=== PATIENT | female | born 1990 | race Caucasian/White ===

== ENCOUNTER → 2019-08-04 15:42 | Outpatient (CLI) | payer BC, SELFPAY ==
--- NOTE | 2019-08-04 15:47 | US_ITS ---
STUDY: FIRST TRIMESTER OBSTETRICAL ULTRASOUND REASON FOR EXAM: Female, 29 years old dating LMP: June 01, 2019 TECHNIQUE: Endovaginal TECHNICAL QUALITY: Adequate. PRIOR ULTRASOUND: None. FINDINGS: There is visualization of a single gestational sac in a normal intrauterine position. The mean sac diameter (MSD) measures 3.1 cm, indicating an estimated gestational age (EGA) of 8 weeks, 3 days. The gestational sac shape is within normal limits. There is a visualized yolk sac. The yolk sac measures 3.7 mm. The placenta is non-visualized. There is visualization of a live embryo. The crown-rump length (CRL) measures 1.25 cm, indicating an estimated gestational age (EGA) of 7 weeks, 4 days. There is demonstrated cardiac activity with a heart rate of 146 bpm. The estimated gestation age (EGA) by LMP is 9 weeks, 1 day. The estimated date of delivery (CHEVY) by LMP is March 07, 2020. The estimated gestation age (EGA) by US is h weeks, 0 days. The estimated date of delivery (CHEVY) by US is March 15, 2020. The uterus measures 9.3 x 7.2 x 6.3 cm. It is slightly retroverted. There is no demonstrated uterine fibroid. The cervix is closed. Small nabothian cyst. The right ovary measures 3.4 x 2.1 x 1.5 cm. There is no right ovarian cyst. There is no visualized right adnexal mass or complex lesion. The left ovary measures 2.9 x 2.2 x 1.9 cm. There is no left ovarian cyst. There is no visualized left adnexal mass or complex lesion. There is no fluid in the cul de sac. US/Init OB < 14Wks US IMPRESSION: Live intrauterine at 8 weeks of gestational age. Electronically Signed: Merritt Hanks DO at 20:18 EDT Tel [phone], Service support ,
== END ==
PROVIDERS: Family Provider Internal Medicine; PCP Internal Medicine; Referring Provider Obstetrics & Gynecology; Visit Provider Obstetrics & Gynecology
DX: O36.80X0 Pregnancy with inconclusive fetal viability, not applicable or unspecified (principal); Z3A.08 8 weeks gestation of pregnancy
CPT/HCPCS: 76801

== ENCOUNTER → 2019-08-22 14:47 | Outpatient (CLI) | payer BC, SELFPAY ==
[2019-08-22 13:27] VITALS: BMI 24.0
[2019-08-22 15:13] LABS: Absolute Lymphocyte Count 2.81 X10^3/uL (0.83-4.51); Absolute Neutrophil Count 8.6 X10^3/uL (2.0-7.7); Basophil# 0.04 X10^3/uL; Basophil% 0.3 % (0-1); Eosinophil# 0.04 X10^3/uL; Eosinophils% 0.3 % (0-5); Hematocrit 40.6 % (37-47); Hemoglobin 14.3 g/dL (12.0-15.0); Lymphocyte # 2.81 X10^3/ul (4.0); Lymphocyte % 22.5 % (19-41); Mean Corp Hgb Conc 35.2 g/dL (32-36); Mean Corpuscular Hgb 32.5 pg (27.0-32.0); Mean Corpuscular Volume 92.3 fL (81-99); Mean Platelet Vol. 9.8 fl (6.2-12.0); Monocyte# 0.94 X10^3/uL; Monocyte% 7.5 % (0-10); NRBC Flagged by Analyzer 0 % (0-5); Neutrophil # 8.63 X10^3/uL (2.7-7.7); Platelet Count 300 K/mm3 (150-450); RBC Distribution Width CV 12.4 % (11.6-14.6); RBC Distribution Width SD 42.3 fl (35.1-43.9); White Blood Count 12.5 K/mm3 (4.4-11.0)
[2019-08-23 12:26] LABS: HIV - WCH Non-Reactive (Nonreactive); Hepatitis B Surface Antigen Non-Reactive (Nonreactive); Rubella IgG 61.2 IU/mL
[2019-08-25 01:54] LABS: Rapid Plasmin Reagin (RPR) NONREACTIVE (NONREACTIVE)
== END ==
PROVIDERS: Family Provider Internal Medicine; PCP Internal Medicine; Referring Provider Nurse Practitioner Women's Health; Visit Provider Nurse Practitioner Women's Health
DX: Z34.81 Encounter for supervision of other normal pregnancy, first trimester (principal)
CPT/HCPCS: 36415; 85025; 86592; 86703; 86762; 86850; 86900; 86901; 87340

== ENCOUNTER → 2019-08-22 16:54 | Outpatient (CLI) | payer BC, SELFPAY ==
[2019-08-22 13:27] VITALS: BMI 24.0
[2019-08-22 20:55] LABS: Chlamydia Trachomatis by PCR Negative (Negative); Neisserai gonorrhoeae by PCR Negative (Negative); Probe Check PASS; Sample Adequacy Control PASS; Specimen Processing Control PASS
[2019-08-25 18:47] LABS: HPV Reflexed? NOT INDICATED
== END ==
PROVIDERS: Family Provider Internal Medicine; PCP Internal Medicine; Referring Provider Nurse Practitioner Women's Health; Visit Provider Nurse Practitioner Women's Health
DX: Z12.4 Encounter for screening for malignant neoplasm of cervix (principal); Z34.00 Encounter for supervision of normal first pregnancy, unspecified trimester
CPT/HCPCS: 87086; 87491; 87591; 88175; G0145

== ENCOUNTER → 2019-09-15 16:37 | Outpatient (CLI) | payer BC, SELFPAY ==
[2019-09-15 14:13] VITALS: BMI 24.0
== END ==
PROVIDERS: Family Provider Internal Medicine; PCP Internal Medicine; Referring Provider Obstetrics & Gynecology; Visit Provider Obstetrics & Gynecology
DX: N89.8 Other specified noninflammatory disorders of vagina (principal)
CPT/HCPCS: 87070; 87205

== ENCOUNTER → 2019-09-18 12:30 | Outpatient (CLI) | payer BC, SELFPAY ==
[2019-09-18 11:56] VITALS: BMI 24.0
--- NOTE | 2019-09-18 12:33 | US_ITS ---
STUDY: SECOND AND THIRD TRIMESTER OBSTETRICAL ULTRASOUND REASON FOR EXAM: Female, 29 years old bleeding with early . LMP: June 08, 2019. TECHNIQUE: Transabdominal and Transvaginal TECHNICAL QUALITY: Adequate. PRIOR ULTRASOUND: Comparison is made with prior study dated August 04, 2019. FINDINGS: There is a single intrauterine fetus. The fetus is in a variable presentation. There is demonstrated cardiac activity with a heart rate of 166 bpm. There is a normal amniotic fluid volume. The largest amniotic fluid pocket measures 3.9 cm x 3.2 cm. The amniotic fluid index (JOSE) is within normal limits. The placenta is anterior and low lying but not previa in location. The tip of the placenta is at 1.3 cm proximal to the cervical os. There are Grade 0 placental changes. The cervix measures 3.1 cm in length. The adnexal regions are not visualized. BIOMETRY: BPD: 2.58 cm: 14 weeks, 3 days HC: 9.7 cm: 14 weeks, 3 days AC: 7.35 cm: 13 weeks, 6 days FL: 1.2 cm: 13 weeks, 3 days CI: 81% FL/BPD: 46% FL/HC: FL/AC: 16% HC/AC: 1.31 age by current US: 14 weeks, 0 days. CHEVY by current US: March 18, 2020. Estimated weight: 83 grams, +/- 12 grams age by prior US: 14 weeks, 3 days. CHEVY by prior US: March 15, 2020. Age by LMP: 14 weeks, 3 days. CHEVY by LMP: March 15, 2020. US/OB Limited With Biometrics IMPRESSION: Single live intrauterine gestation with a mean gestational age of 14 weeks and 3 days. The measurements obtained today following the normal expected range. Low-lying anterior placenta previa. The tip of the placenta is a 1.3 cm proximal to the cervical os. Electronically Signed: Vern Freire, at 14:58 EST , Service support ,
== END ==
PROVIDERS: Family Provider Internal Medicine; PCP Internal Medicine; Referring Provider Nurse Practitioner Women's Health; Visit Provider Nurse Practitioner Women's Health
DX: O44.02 Complete placenta previa NOS or without hemorrhage, second trimester (principal); Z3A.14 14 weeks gestation of pregnancy
CPT/HCPCS: 76816; 76830

== ENCOUNTER → 2019-10-11 13:40 | Outpatient (CLI) | payer BC, SELFPAY ==
[2019-10-11 13:17] VITALS: BMI 24.0
== END ==
PROVIDERS: Family Provider Internal Medicine; PCP Internal Medicine; Referring Provider Obstetrics & Gynecology; Visit Provider Obstetrics & Gynecology
DX: Z36.9 Encounter for antenatal screening, unspecified (principal)
CPT/HCPCS: 36415

== ENCOUNTER → 2019-12-29 10:12 | Outpatient (CLI) | payer BC, SELFPAY ==
[2019-12-29 09:47] VITALS: BMI 24.0
[2019-12-29 11:15] LABS: Absolute Lymphocyte Count 1.95 X10^3/uL (0.83-4.51); Absolute Neutrophil Count 8.4 X10^3/uL (2.0-7.7); Basophil# 0.04 X10^3/uL; Basophil% 0.4 % (0-1); Eosinophil# 0.04 X10^3/uL; Eosinophils% 0.4 % (0-5); Hematocrit 36.6 % (37-47); Hemoglobin 12.8 g/dL (12.0-15.0); Lymphocyte # 1.95 X10^3/ul (4.0); Lymphocyte % 17.1 % (19-41); Mean Corpuscular Hgb 33.3 pg (27.0-32.0); Mean Corpuscular Volume 95.3 fL (81-99); Mean Platelet Vol. 10.1 fl (6.2-12.0); Monocyte# 0.76 X10^3/uL; Monocyte% 6.7 % (0-10); NRBC Flagged by Analyzer 0 % (0-5); Neutrophil # 8.42 X10^3/uL (2.7-7.7); Neutrophil % 73.8 % (47-70); Platelet Count 225 K/mm3 (150-450); RBC Distribution Width CV 12.9 % (11.6-14.6); RBC Distribution Width SD 44.5 fl (35.1-43.9); Red Blood Count 3.84 M/mm3 (4.2-5.4); White Blood Count 11.4 K/mm3 (4.4-11.0)
[2019-12-29 11:26] LABS: Glucose Challenge Gest 1H 50g 92 mg/dL (70-140)
== END ==
PROVIDERS: PCP Internal Medicine; Referring Provider Obstetrics & Gynecology; Visit Provider Obstetrics & Gynecology
DX: O26.893 Other specified pregnancy related conditions, third trimester (principal); Q27.0 Congenital absence and hypoplasia of umbilical artery; Z67.91 Unspecified blood type, Rh negative; Z3A.29 29 weeks gestation of pregnancy
CPT/HCPCS: 36415; 82950; 85025; 86850; 86900; 86901

== ENCOUNTER → 2020-01-26 | Outpatient (CLI) | payer BC, SELFPAY ==
[2020-01-26 12:16] VITALS: BMI 24.0
[2020-01-26 20:00] LABS: Chlamydia Trachomatis by PCR Negative (Negative); Neisserai gonorrhoeae by PCR Negative (Negative); Probe Check PASS; Sample Adequacy Control PASS; Specimen Processing Control PASS
== END | disposition home or self-care (01) ==
LOC: LABSPEC 17:50
PROVIDERS: PCP Internal Medicine; Visit Provider Obstetrics & Gynecology
DX: A64 Unspecified sexually transmitted disease (principal); N76.0 Acute vaginitis
CPT/HCPCS: 87070; 87205; 87491; 87591

== ENCOUNTER → 2020-02-02 11:15 | Outpatient (CLI) | payer BC, SELFPAY ==
[2020-01-12 15:02] VITALS: BMI 24.0
[2020-01-26 12:16] VITALS: BMI 24.0
--- NOTE | 2020-02-02 11:15 | US_ITS ---
STUDY: SECOND AND THIRD TRIMESTER OBSTETRICAL ULTRASOUND REASON FOR EXAM: Female, 29 years old GROWTH -2VC LMP: June 09, 2019. TECHNIQUE: Transabdominal and Transvaginal TECHNICAL QUALITY: Adequate. PRIOR ULTRASOUND: Comparison is made with prior examination dated September 18, 2019. FINDINGS: There is a single intrauterine fetus. The fetus is in a cephalic presentation. There is demonstrated cardiac activity with a heart rate of 133 bpm. There is a normal amniotic fluid volume. The largest amniotic fluid pocket measures 4.2 cm. The amniotic fluid index (JOSE) is 12.7 cm. The placenta is anterior in location and is not low lying. There are Grade 2 placental changes. The cervix measures 1.7 cm in length. The referring doctor was notified. The adnexal regions are not visualized. BIOMETRY: BPD: 8.8 cm: 35 weeks, 5 days HC: 32.2 cm: 36 weeks, 3 days AC: 28.8 cm: 32 weeks, 6 days FL: 6.7 cm: 34 weeks, 2 days CI: 82% FL/BPD: 75% FL/HC: FL/AC: 23% HC/AC: 1.12 age by current US: 34 weeks, 6 days. CHEVY by current US: March 09, 2020. Estimated weight: 2288 grams, +/- 334 grams, 39 %. age by prior US: 33 weeks, 4 days. CHEVY by prior US: March 18, 2020. Age by LMP: 34 weeks, 0 days. CHEVY by LMP: March 15, 2020. US/OB Limited With Biometrics IMPRESSION: Single live intrauterine gestation with a mean gestational age of 33 weeks and 4 days. The measurements are obtained today follow-through normal expected range. The cervix measures 1.7 cm in length. Electronically Signed: Vern Freire, at 13:07 EDT , Service support ,
== END ==
PROVIDERS: PCP Internal Medicine; Referring Provider Obstetrics & Gynecology; Visit Provider Obstetrics & Gynecology
DX: Q27.0 Congenital absence and hypoplasia of umbilical artery (principal)
CPT/HCPCS: 76816; 76817

== ENCOUNTER → 2020-02-16 | Outpatient (CLI) | payer BC, SELFPAY ==
[2020-02-16 14:04] VITALS: BMI 24.0
== END | disposition home or self-care (01) ==
LOC: LABSPEC 16:07
PROVIDERS: PCP Internal Medicine; Referring Provider Obstetrics & Gynecology; Visit Provider Obstetrics & Gynecology
DX: Z34.80 Encounter for supervision of other normal pregnancy, unspecified trimester (principal)
CPT/HCPCS: 87081

== ENCOUNTER → 2020-03-01 11:24 | Outpatient (CLI) | payer BC, SELFPAY ==
[2020-02-28 13:45] VITALS: BMI 29.6
--- NOTE | 2020-03-01 11:25 | US_ITS ---
STUDY: SECOND AND THIRD TRIMESTER OBSTETRICAL ULTRASOUND - LIMITED REASON FOR EXAM: Female, 29 years old GROWTH 2V CORD SHORTENED CX LMP: 06/09/2019. PRIOR ULTRASOUND: 02/02/2020. TECHNIQUE: Transabdominal TECHNICAL QUALITY: Adequate. FINDINGS: There is a single intrauterine fetus. The fetus is in a cephalic presentation. There is demonstrated cardiac activity with a heart rate of bpm. There is a normal amniotic fluid volume. The largest amniotic fluid pocket measures 4.1 cm. The amniotic fluid index (JOSE) is 8.9 cm. The placenta is anterior in location and is not low lying. There are Grade 2 placental changes. The cervix is not visualized. BIOMETRY: BPD: 9.43 cm: 38 weeks, 3 days HC: 33.78 cm: 38 weeks, 6 days AC: 33.61 cm: 37 weeks, 4 days FL: 7.34 cm: 37 weeks, 4 days Age by LMP: 38 weeks, 0 days. CHEVY by LMP: 03/15/2020. CHEVY by prior US: 03/09/2020. age by current US: 38 weeks, 1 days. CHEVY by current US: 03/14/2020. Estimated weight: 3304 grams, +/- 482 grams, 57 percentile. US/OB Limited With Biometrics IMPRESSION: Single intrauterine with ultrasound estimated age of 38 weeks and 1 day and estimated date of delivery of 03/14/2020. Normal cardiac activity. Vertex presentation. Anterior placenta with no evidence of previa. Electronically Signed: Mary Hernandez MD at 1:41 EDT , Service support ,
== END ==
PROVIDERS: PCP Internal Medicine; Referring Provider Obstetrics & Gynecology; Visit Provider Obstetrics & Gynecology
DX: O35.8XX0 Maternal care for other (suspected) fetal abnormality and damage, not applicable or unspecified (principal); Z3A.38 38 weeks gestation of pregnancy
CPT/HCPCS: 76816

== ENCOUNTER → 2020-03-07 | Outpatient (CLI) | payer BC, SELFPAY ==
[2020-03-07 11:11] VITALS: BMI 24.0
[2020-03-07 11:54] LABS: ROM Internal Control Test YES-OK TO RESULT pt. (Internal QC); ROM Patient Test Negative (Negative)
== END | disposition home or self-care (01) ==
PROVIDERS: PCP Internal Medicine; Referring Provider Nurse Practitioner Women's Health; Visit Provider Nurse Practitioner Women's Health
DX: Z34.80 Encounter for supervision of other normal pregnancy, unspecified trimester (principal)
CPT/HCPCS: 84112

== ENCOUNTER → 2020-03-08 09:49 | Outpatient (CLI) | payer BC, SELFPAY ==
[2020-02-28 13:54] VITALS: BMI 24.0
[2020-03-07 11:11] VITALS: BMI 24.0
--- NOTE | 2020-03-08 09:51 | US_ITS ---
STUDY: OBSTETRICAL ULTRASOUND - BIOPHYSICAL PROFILE REASON FOR EXAM: Female, 29 years old 2vc LMP: June 09, 2019. PRIOR ULTRASOUND: Comparison is made with prior examination dated March 01, 2020. TECHNIQUE: Transabdominal TECHNICAL QUALITY: Adequate. FINDINGS: There is a single intrauterine fetus. The fetus is in a cephalic presentation. There is demonstrated cardiac activity with a heart rate of 145 bpm. There is a normal amniotic fluid volume. The largest amniotic fluid pocket measures 3.7 cm. The amniotic fluid index (JOSE) is 10.1 cm. The placenta is anterior in location and is not low lying. There are Grade 3 placental changes. Age by LMP: 39 weeks, 0 days. CHEVY by LMP: March 15, 2020. age by prior US: 39 weeks, 2 days. CHEVY by prior US: March 14, 2020. BIOPHYSICAL PROFILE: Breathing Movements (FBM): 2 Gross Body Movements (GBM): 2 Tone (FT): 2 Amniotic Fluid Volume (AFV): 2 TOTAL SCORE: US/Biophysical Profile IMPRESSION: Normal biophysical profile of 06/22. Electronically Signed: Vern Freire, at 11:30 EDT , Service support ,
== END ==
PROVIDERS: PCP Internal Medicine; Referring Provider Obstetrics & Gynecology; Visit Provider Obstetrics & Gynecology
DX: O26.899 Other specified pregnancy related conditions, unspecified trimester (principal); Q27.0 Congenital absence and hypoplasia of umbilical artery; Z67.91 Unspecified blood type, Rh negative; Z3A.39 39 weeks gestation of pregnancy
CPT/HCPCS: 76818

== ENCOUNTER 2020-03-15 11:30 | Inpatient (IN) | payer BC, SELFPAY ==
[2020-03-07 11:11] VITALS: BMI 24.0
[2020-03-15] VITALS (39 sets, daily range): BP systolic 105–144; BP diastolic 55–97; PULSE 82–171; TEMP 36.5–37.9; O2SAT 82–100; BMI 24.0; BMI 30.2
--- NOTE | 2020-03-15 11:45 | HP.PCM_ITS ---
- Problem List (1) Oligohydramnios Status: Acute (2) Status: Acute Qualifiers: Comment: declines carrier. NIPT low risk. AFP negative. reviewed anatomy scan. (3) Rh negative state in antepartum period Status: Acute Comment: rhogam 12/29/19 (4) Supervision of other normal Status: Acute Comment: PRR CHEVY 03/15/20 girl Deedee BF: Froylan (5) Two vessel cord Status: Acute Comment: recommend growth every 4 weeks after 28 weeks, weekly nsts after 32 weeks adequate growth at 28 wks. 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 Is patient in pain?: No Allergies epinephrine Allergy (Mild, Verified 03/15/20 10:50) tachycardia, low bp fluoxetine [From Prozac] Allergy (Mild, Verified 03/15/20 10:50) tachycardia, low bp Medications docosahexaenoic acid 200 mg capsule mg PO cap 08/22/19 [History Confirmed 03/15/20] promethazine 12.5 mg tablet 12.5 mg PO Q6H PRN #60 tab 09/04/19 [Rx Confirmed 03/15/20] Last Menstral Period: 06/01/19 Zika: Zika virus screening: Negative : No PFSH PFSH Medical History Depression with anxiety (Acute) Status post elective (Acute ~04/2019) Family History Father Hypertension Mother Hypertension Grandfather Melanoma Social History (Updated 03/15/20 @ 11:[address] Clemencia Deleon MD) Smoking Status: Never smoker alcohol intake: current details: not since finding out substance use type: does not use caffeine: Yes what type of physical activity do you participate in: other details: crossfit frequency: 3-4 times per week seatbelt use: always do you feel safe at home: Yes additional social history: Boyfriend-Froylan- [employer] Patient work at [employer] History 2 Elective abortions 1 Hx Para Spontaneous abortions Hx # Term Pregnancies Ectopic pregnancies Hx # Pregnancies Multiple births # of living children HPI 39 WK OB/NST: Details: CARLEE TAYLOR is a 29 year old who presents for routine OB visit. she has had decreased movement. on ultrasound she has severe oligohydramnios but good movement is seen on ultrasound. OB Visit CHEVY Calculator Estimated Delivery Date Method Current WG Current Estimate 03/15/20 Ultrasound #1 40w 0d Other Estimates 03/07/20 LMP (Certain) 41w 1d Expected Delivery Route/Plan Labor Preferences- labor support person: Froylan pain management options preferred: Epidural cut cord/dad catch: maybe : yes PP control planned: [] discussed possible routes of delivery and associated risks: [] special requests: [] Specific Issue/Plans flu vaccine: declined tdap vaccine: given rhogam: 12/29/19 given LARC form signed: declined movement and labor precautions reviewed. Problem list reviewed and updated with the most current plan of care details and appropriate orders placed. Relevant counseling for the gestational age provided. Continue routine care and follow up unless otherwise noted in visit notes/problem list details Initial Weight: Not Recorded Date EGA Weight BP Urine Prot Glucose FHR FuHt Pres Dilation Effaced St Visit Note 08/22/19 10w 4d 153 lb 4 oz 130/84 150 09/15/19 14w 0d 160 lb 122/74 Negative Negative 145 09/18/19 14w 3d 158 lb 6 oz 120/72 Negative Negative 160 0 Work in for vaginal bleeding X 24 hr. Dark in color, light in amount. Old dark blood with 1cm clot in vault. 10/11/19 17w 5d 162 lb 4 oz 115/75 Negative Negative 146 No further VB. No LOF. AFP today. Needs anatomy US scheduled. 11/09/19 21w 6d 168 lb 6 oz 134/83 Negative Negative 145 discussed anatomy scan results and recommended extra testing. 12/08/19 26w 0d 174 lb 8 oz 104/66 Negative Negative 140 26 SM- no vb lof good fm no regular ctx 12/29/19 29w 0d 179 lb 120/60 140 29 SM- no vb lof good fm no regular ctx SM- no vb lof good fm no regular ctx, declines childbirth class. 01/12/20 31w 0d 187 lb 124/78 Negative Negative 135 31 SM- no vb lof good fm no regular ctx 02/02/20 34w 0d 184 lb 120/70 Negative Negative 02/09/20 35w 0d 188 lb 120/72 Trace Negative 130 SM- no vb lof good fm no regular ctx 02/16/20 36w 0d Negative Negative 02/28/20 37w 5d 189 lb 6 oz 138/76 Negative Negative 150 37 Cephalic 2 50 -2 Mh-O[facility] BH. NO VB, LOF. R eactive NST 03/07/20 38w 6d 188 lb 2 oz 118/80 Negative Negative 152 28 Cephalic 2 -2 MH-questions leaking fluid X 2 days. No CTX, VB. Good FM 03/15/20 40w 0d 193 lb 126/70 Negative Negative 150 39 Cephalic 1.5 60 -1 SM- no vb lof good but de creased fm no regular ctx Notes Visit Date: 03/15/20 ??No visit notes to display Visit Date: 03/07/20 ??No visit notes to display Visit Date: 02/28/20 ??No visit notes to display Visit Date: 02/16/20 ??No visit notes to display Visit Date: 02/09/20 ??No visit notes to display Visit Date: 02/02/20 ??No visit notes to display Visit Date: 01/12/20 ??No visit notes to display Visit Date: 12/29/19 ??No visit notes to display Visit Date: 12/08/19 ??No visit notes to display Visit Date: 11/09/19 ??No visit notes to display Visit Date: 10/11/19 ??No further VB. No LOF. AFP today. Needs anatomy US scheduled. ??OLEGARIO Griffin on 10/11/19 Visit Date: 09/18/19 ??Work in for vaginal bleeding X 24 hr. Dark in color, light in amount. Old dark blood with 1cm clot in vault. ??OLEGARIO Griffin on 09/18/19 Visit Date: 09/15/19 ??No visit notes to display Visit Date: 08/22/19 ??No visit notes to display ACOG First Trimester First Trimester: Desire for , Anticipated Course of Care, Toxoplasmosis Precations, Use of Any medications, Sexual activity, Exercise, Sauna/Hot tub use, Seat Belt use, , Indications for US and Screening for Aneuploidy; discussed Alcohol, discussed Tobacco Cessation, discussed Illicit/Recreational Drug/Substance Use, discussed Intimate Partner Violence, discussed Unstable Housing or discussed Environmental/Work Hazards Second Trimester Second Trimester: Signs and Symptoms of Labor, Selecting a care provider, Reproductive Life Planning, Care Planning, Tobacco Cessation, Depression/Anxiety and Intimate Partner Violence Third Trimester Third Trimester: Pain Management Plans, Labor support person(s), Immediate Larc, Movement Monitoring and Feeding Yes ; discussed Trial of Labor after Counseling or discussed Circumcision preference Diagnostics Diagnostics Details: HIV: Urine Culture: Sequential Screen: NIPT Screen: ROS Const Reports system reviewed and no additional complaints, except as docu Card Reports system reviewed and no additional complaints, except as docu Resp Reports system reviewed and no additional complaints, except as docu GI Reports system reviewed and no additional complaints, except as docu, Reports nausea Reports system reviewed and no additional complaints, except as docu Musc Reports system reviewed and no additional complaints, except as docu Exam Const General: cooperative, healthy appearing, comfortable, anxious HENMT Head: normal to inspection Nose: external nose normal Face and sinus: normal facial exam Neck Neck: normal visual inspection, full ROM, no lymphadenopathy Thyroid: thyroid normal Chest Chest palpation & inspection: normal inspection of the chest Resp Effort & Inspection: normal respiratory effort GI Inspection: normal to inspection Palpation: soft, other (gravid uterus) Other: infant vertex and appropriate size for gestational age Other: Cervical Exam: Extrem General: pedal edema Results POC Urinalysis 2 Dip (Clinic) Office Urine Glucose Negative Last Edit by Marie Aguirre on 03/15/20 10:53 Office Urine Protein Negative Last Edit by Marie Aguirre on 03/15/20 10:53 Assessment & Plan Problems 1. Supervision of other normal Z34.80 2. 40 weeks gestation of Z3A.40 3. Rh negative state in antepartum period O26.899; Z67.91 4. Two vessel cord Q27.0 Patient presents IOL, plan management for , pitocin/AROM after fb Pain management: plans epidural GBS negative Management of any complications: oligo 2 vessel cord plan IOL I have reviewed the [facility] and made any clinically relevant updates. Orders Orders: OB NST Today O26.899, Q27.0, Z34.80, Z3A.40, Z67.91 POC Urinalysis 2 Dip (Clinic) Today O26.899, Q27.0, Z34.80, Z3A.40, Z67.91 Coding Level of Care Code OB Routine Diagnoses Supervision of other normal Z34.80 40 weeks gestation of Z3A.40 ??Weeks of gestation: 40 weeks Rh negative state in antepartum period O26.899; Z67.91 Two vessel cord Q27.0
[2020-03-15] MEDS: Lactated Ringers 1,000 ML 50 ML IV (11:55)
[2020-03-15] MEDS: 0.9% Normal Saline Single 100 ML IV.SOLN. IY (12:22)
[2020-03-15 13:03] LABS: Absolute Neutrophil Count 7.4 X10^3/uL (2.0-7.7); Basophil# 0.06 X10^3/uL; Basophil% 0.6 % (0-1); Eosinophil# 0.03 X10^3/uL; Eosinophils% 0.3 % (0-5); Hematocrit 38.7 % (37-47); Hemoglobin 13.7 g/dL (12.0-15.0); Mean Corp Hgb Conc 35.4 g/dL (32-36); Mean Corpuscular Hgb 32.9 pg (27.0-32.0); Mean Platelet Vol. 10.2 fl (6.2-12.0); Monocyte% 9.5 % (0-10); NRBC Flagged by Analyzer 0 % (0-5); Neutrophil # 7.41 X10^3/uL (2.7-7.7); Platelet Count 207 K/mm3 (150-450); RBC Distribution Width CV 12.6 % (11.6-14.6); RBC Distribution Width SD 42.7 fl (35.1-43.9); Red Blood Count 4.16 M/mm3 (4.2-5.4); White Blood Count 10.6 K/mm3 (4.4-11.0)
[2020-03-15] MEDS: Oxytocin 30 units/NS 500 ml 30 UNITS/500 ML IV.SOLN IV (13:40)
[2020-03-15] MEDS: Lactated Ringers 500 ML 999 ML IV (17:19)
[2020-03-15] MEDS: fentaNYL-bupivacaine (epidural) 100 ML BAG EPIDURAL (17:58)
[2020-03-15] MEDS: Azelastine HCl NASAL.SRY 2 SPRAY NASAL (18:04)
[2020-03-15] MEDS: Oxytocin 30 units/NS 500 ml 30 UNITS/500 ML IV.SOLN 334 UNITS IV (22:02)
--- NOTE | 2020-03-15 22:21 | PCM.OPRPT ---
Problem List (1) Oligohydramnios Status: Acute (2) Status: Acute Qualifiers: Comment: declines carrier. NIPT low risk. AFP negative. reviewed anatomy scan. (3) Rh negative state in antepartum period Status: Acute Comment: rhogam 12/29/19 (4) Supervision of other normal Status: Acute Comment: PRR CHEVY 03/15/20 johana Mark BF: Froylan (5) Two vessel cord Status: Acute Comment: recommend growth every 4 weeks after 28 weeks, weekly nsts after 32 weeks adequate growth at 28 wks. Vaginal Delivery Maternal Presentation: Medically Indicated Induction 29-year-old G1, P0 at 40 weeks presents with oligohydramnios for induction of labor Method of Induction: Pitocin, [facility] Medical Reason for Induction: - - Oligohydramnios Amniotic Membrane Rupture Type: Artificial Amniotic Fluid Description: Clear Final CHEVY: 03/15/20 Gestational age: 40 Weeks and 0 Days Date of Procedure: 03/15/20 Pre-Operative Diagnosis: Induction labor oligohydramnios, prolonged heart rate deceleration du Post-Operative Diagnosis: Same Surgery/ Procedure Performed: Vacuum Assisted Vaginal Delivery Type of Anesthesia: Epidural Description of Procedure: Patient began pushing and had good effort and was able to move the head to the +3 +4 station. After pushing with several contractions there was a prolonged heart rate deceleration into the 60s that did not resolve with position changes and therefore the decision to apply vacuum was made. Heart rate came back up into the 90s to 110s vacuum was applied 2 pop offs applied with 2 contractions and delivered with 3 pulls without complication the infant's head was delivered atraumatically in the STEVE presentation followed by the anterior and posterior shoulders in order to successfully deliver the head with a vacuum a midline episiotomy was cut and a second-degree perineal laceration was noted for the extension. This laceration was repaired in the usual fashion with 3-0 Vicryl Rapide. EBL was 300 cc. Placenta delivered spontaneously immediately following was noted be intact to have a two-vessel cord. No other complications. ABGs and VBG's were sent. Presentation: STEVE Placental Delivery Description: Spontaneous Placenta Disposition: [facility] Cord Vessel Description: 2 Vessels Cord Gases drawn per routine: ABG, VBG Cord Entanglement: None Estimated Blood Loss: 300 A gender: Female Episiotomy Description: Midline Laceration: Perineal Extension/lac, 2nd degree Medications given after delivery: IV Pitocin Complications: None Multi Select Codes - Urinary/Genital Urinary/Genital CPT Codes: 03333 Vaginal Delivery global pkg - vacuum assisted
[2020-03-16] VITALS (8 sets, daily range): BP systolic 108–150; BP diastolic 50–76; PULSE 83–112; RESP 16–18; TEMP 36.4–37.1; O2SAT 98–99
[2020-03-16] MEDS: Naproxen 250 MG Tablet 500 MG PO ×3 (00:58→20:43)
[2020-03-16] MEDS: 0.9% Saline Lock 10 ML Syringe IV (00:59)
[2020-03-16] MEDS: Acetaminophen 500 MG Tablet 1000 MG PO ×2 (07:15→22:24)
[2020-03-16] MEDS: Azelastine HCl NASAL.SRY 2 SPRAY NASAL (08:48)
--- NOTE | 2020-03-16 10:11 | PN.OBGYN_ITS ---
Patient Problems: Active and Suspected Problems (Last Reviewed 03/15/20 @ 10:50 by Marie Aguirre) Oligohydramnios (Acute) Subjective: doing well no complaints pain controlled no CP SOB N V ambulating well tolerating po lochia moderate, going well - Physical Exam Vitals/I&O's: Vital Signs Temp Pulse Resp BP Pulse Ox 97.9 F 85 16 108/63 99 03/16/20 08:27 03/16/20 08:27 03/16/20 08:27 03/16/20 08:27 03/16/20 00:04 Oxygen Delivery Method Room Air Weight: 193 lb Body Mass Index (BMI) 30.2 Intake and Output for Last 24 Hours 03/14/20 03/15/20 03/16/20 23:59 23:59 23:59 Intake Total 1735.17 / 1735.17 333 / 333 Output Total 600 / 600 1250 / 1250 Balance 1135.17 / 1135.17 -917 / -917 General: Alert, Oriented x3 Laboratory Results 03/15/20 11:55: WBC 10.6, RBC 4.16 L, Hgb 13.7, Hct 38.7, MCV 93.0, MCH 32.9 H, MCHC 35.4, RDW Std Deviation 42.7, RDW Coeff of Radha 12.6, Plt Count 207, MPV 10.2, Immature Gran % (Auto) 1.600 H, Neut % (Auto) 70.0, Lymph % (Auto) 18.0 L, [place] % (Auto) 9.5, Eos % (Auto) 0.3, Baso % (Auto) 0.6, Absolute Neuts (auto) 7.4, Absolute Lymphs (auto) 1.90, Nucleated RBC % 0 03/15/20 11:55: Blood Type O NEGATIVE, Antibody Screen TNP 03/15/20 11:55: Antibody Screen NEGATIVE 03/15/20 23:35: Screen NEGATIVE, Baby's Blood Type O POSITIVE, Baby's AYDEE NEGATIVE Current Medications Acetaminophen (Tylenol) 1,000 mg PO Q8H PRN PRN PRN Reason: Pain Score 1-3/10 Last Admin: 03/16/20 07:15 Dose: 1,000 mg Documented by: Azelastine HCl (Astelin) 2 spray NASAL BID PRN PRN PRN Reason: congestion Last Admin: 03/16/20 08:48 Dose: 1 spray Documented by: Bisacodyl (Dulcolax) 10 mg RECTAL UD PRN PRN Reason: If no BM Dibucaine (Dibucaine) 1 applic TOPICAL TID PRN PRN; Protocol PRN Reason: Discomfort Hydrocortisone (Hytone) 1 applic TOPICAL TID PRN PRN; Protocol PRN Reason: Discomfort Methylergonovine Maleate (Methergine) 0.2 mg IM X1 PRN PRN Reason: Excess bleeding/uterine atony Naproxen (Naprosyn) 500 mg PO Q8H PRN PRN PRN Reason: Pain Score 1-3/10 Last Admin: 03/16/20 00:58 Dose: 500 mg Documented by: Ondansetron HCl (Zofran) 4 mg IV Q4H PRN PRN PRN Reason: Nausea Oxycodone HCl (Oxyir) 5 - 10 mg PO Q4H PRN PRN PRN Reason: Pain Score 4-10/10 Senna/Docusate Sodium (Senokot-S, Zaida-Colace) 1 - 2 tablet PO DAILY PRN PRN PRN Reason: Constipation Simethicone (Mylicon) 80 mg PO PCHS PRN PRN Reason: Indigestion/Stomach pain Sodium Chloride () 5 - 15 ml IV UD PRN PRN Reason: SALINE FLUSH Last Admin: 03/16/20 00:59 Dose: 10 ml Documented by: Medical Necessity - Tobacco Use Smoking Status: Former smoker Assessment/Plan All Active Problems (Last Reviewed 03/15/20 @ 10:50 by Marie Aguirre) Oligohydramnios (Acute) Two vessel cord (Acute) Rh negative state in antepartum period (Acute) (Acute) Supervision of other normal (Acute) Low-lying placenta (Resolved) Single umbilical artery (Resolved) s/p PPD # 1 1. routine post delivery care 2. breast feeding- support given 3. rh neg- rhogam PRN 4. rubella immune
[2020-03-16] MEDS: Senna/Docusate Sodium 1 Tablet PO (10:58)
--- NOTE | 2020-03-16 12:00 | CASEMGMT ---
Social Work Assessment Labor and Delivery Unit Date of Referral: 03/16/2020 Time of Referral: 02:40 Referred By: Dr. Morales Date of Intervention: 03/16/2020 Time of Intervention: 11:35 Reason for Referral: Mother of baby (MOB) with history of depression and anxiety. History obtained from: MOB, Chart, Father of baby (FOB), and nursing staff. Household composition: MOB, FOB, this , and MOB's mother, Myah Patient's parent/guardian status: This is first infant for MOB and FOB, Froylan Corley. This to be named Deedee Corley. MOB stating was not planned but accepted. MOB and FOB have been together for 5 years. Medical History: MOB . Vaginal delivery at 40weeks, induced. MOB with history of depression, anxiety. born on 03/15/2018 with Apgars of 8 and 9 at 1min and 5min and birthweight of 3802g. Educational Status: MOB with Bachelor degree. MOB reporting no concerns with comprehension or understanding. Financial Status: MOB stating to have no financial concerns. MOB works full-time at [employer] [facility] [place], [place] and plans to return to work after maternity leave. MOB stating to not need to return to work until 2019. FOB works full-time for a construction crew and only has the weekend off. Supplies: MOB stating to have all needed supplies including crib and car seat. MOB planning to breast feed and stating that this is going well. Childcare/Caregiver(s): MOB stating to be primary caregiver for until MOB returns to work at which that time MOB plans to utilize an in-home daycare. Transportation: No concerns. Programs/Agencies Involved: None. Children Services/Legal Issues: Denies any concerns. Mental Health History: MOB with history of depression and anxiety. MOB stating to currently be in monthly counseling and this helps. MOB stating to have stopped taking medication for mental health 2 years ago under collaboration with doctor. MOB stating to have been surprised at how well MOB's mental health was during . Educated MOB on signs and symptoms of depression and baby blues. MOB voicing verbal plan to update doctor and counselor on how MOB's mental health is. MOB denies any suicidal thoughts/plans. Substance Use History: Denies any history or current use. Maternal and Infant Drug Screens: None obtained. PHQ9: MOB did not trigger. Family/Social Stressors: MOB denies any current stressors other then transitioning to a family of three. Support Systems: MOB reporting to have positive support from FOB and both families. MOB stating to have a positive relationship with MOB's mother that MOB/FOB and now this are living with. MOB stating to be working on finding own housing and voicing no concerns with this. Depression and Anxiety/Shaken Baby/Safe Sleeping: MOB educated and provided with resources on PPD, Shaken baby, Safe Sleeping and [facility]. ASSESSMENT: Met with MOB and FOB along with infant in room. Introduced self as well as medical social consultant role. MOB open to speaking with this medical social consultant. MOB holding infant during conversation and reporting to feel a connection with infant. MOB presenting with a positive and engaged affect. MOB and FOB stating to be excited about infant. Was able to have conversation about normal emotions and feelings after having an infant. Also discussed the transition that happens after having an and how this impacts the family unit. Support and listening provided. No further needs identified. PLAN: Infant to discharge to home with MOB/FOB and MOB's mother. No other services requested or indicated. Debby GANN, PENELOPE
[2020-03-17 02:00] VITALS: BP 115/81; PULSE 97; RESP 16; TEMP 36.4; O2SAT 97
--- NOTE | 2020-03-17 07:47 | PCM.PN.OB ---
Patient Problems: Active and Suspected Problems (Last Reviewed 03/15/20 @ 10:50 by Marie Aguirre) Oligohydramnios (Acute) Subjective: doing well no complaints pain controlled no CP SOB N V ambulating well tolerating po lochia moderate, going well - Physical Exam Vitals/I&O's: Vital Signs Temp Pulse Resp BP Pulse Ox 97.5 F L 97 16 115/81 H 97 03/17/20 02:00 03/17/20 02:00 03/17/20 02:00 03/17/20 02:00 03/17/20 02:00 Oxygen Delivery Method Room Air Weight: 193 lb Body Mass Index (BMI) 30.2 Intake and Output for Last 24 Hours 03/15/20 03/16/20 03/17/20 23:59 23:59 23:59 Intake Total 1735.17 / 1735.17 333 / 333 Output Total 600 / 600 1250 / 1250 Balance 1135.17 / 1135.17 -917 / -917 General: Alert, Oriented x3 Current Medications Acetaminophen (Tylenol) 1,000 mg PO Q8H PRN PRN PRN Reason: Pain Score 1-3/10 Last Admin: 03/16/20 22:24 Dose: 1,000 mg Documented by: Azelastine HCl (Astelin) 2 spray NASAL BID PRN PRN PRN Reason: congestion Last Admin: 03/16/20 08:48 Dose: 1 spray Documented by: Bisacodyl (Dulcolax) 10 mg RECTAL UD PRN PRN Reason: If no BM Dibucaine (Dibucaine) 1 applic TOPICAL TID PRN PRN; Protocol PRN Reason: Discomfort Hydrocortisone (Hytone) 1 applic TOPICAL TID PRN PRN; Protocol PRN Reason: Discomfort Methylergonovine Maleate (Methergine) 0.2 mg IM X1 PRN PRN Reason: Excess bleeding/uterine atony Naproxen (Naprosyn) 500 mg PO Q8H PRN PRN PRN Reason: Pain Score 1-3/10 Last Admin: 03/16/20 20:43 Dose: 500 mg Documented by: Ondansetron HCl (Zofran) 4 mg IV Q4H PRN PRN PRN Reason: Nausea Oxycodone HCl (Oxyir) 5 - 10 mg PO Q4H PRN PRN PRN Reason: Pain Score 4-10/10 Senna/Docusate Sodium (Senokot-S, Zaida-Colace) 1 - 2 tablet PO DAILY PRN PRN PRN Reason: Constipation Last Admin: 03/16/20 10:58 Dose: 2 tablet Documented by: Simethicone (Mylicon) 80 mg PO PCHS PRN PRN Reason: Indigestion/Stomach pain Sodium Chloride () 5 - 15 ml IV UD PRN PRN Reason: SALINE FLUSH Last Admin: 03/16/20 00:59 Dose: 10 ml Documented by: Medical Necessity - Tobacco Use Smoking Status: Former smoker Assessment/Plan All Active Problems (Last Reviewed 03/15/20 @ 10:50 by Marie Aguirre) Oligohydramnios (Acute) Two vessel cord (Acute) Rh negative state in antepartum period (Acute) (Acute) Supervision of other normal (Acute) Low-lying placenta (Resolved) Single umbilical artery (Resolved) s/p PPD # 2 1. routine post delivery care 2. breast feeding- support given 3. rh neg- rhogam PRN 4. rubella immune
--- NOTE | 2020-03-17 07:48 | DCINST_ITS ---
Discharge Diet: No Restrictions Discharge Activity: Return to Normal Activity, May not drive while taking narcotic pain medications., May Shower May resume sexual activity in: 4-6 weeks Call your doctor if your incision/area has: Continuous Slow Oozing, Sudden Increased Bleeding, Increased Pain/ Swelling, Increased Redness, Foul Smelling Discharge Additional Instructions: If you experience any of the following, contact your healthcare provider. * Bleeding that soaks a pad every hour for 2 hours * Fever 100.4 or higher * Unrelieved incision or abdominal pain * Swelling, redness, discharge or bleeding from your incision or episiotomy site * Your incision begins to separate * Problems urinating (including inability to urinate or burning while urinating). * Visual changes * Severe headache * Flu-like symptoms * Pain or redness in one of both of your breasts * Pain, warmth, tenderness or swelling in your legs, especially the calf area * Frequent nausea and vomiting * Symptoms of depression or anxiety If you experience any of the following, call 911 or go to the nearest Emergency Room. * Chest pain * Problems breathing * Seizure activity * Partial or complete paralysis of a body part, slurred speech, weakness or drooping of the face, or a sudden inability to walk or hold your balance Allergies/Adverse Reactions: Allergies epinephrine Allergy (Mild, Verified 03/15/20 10:50) tachycardia, low bp fluoxetine [From Prozac] Allergy (Mild, Verified 03/15/20 10:50) tachycardia, low bp Medications to take at Discharge Vits [Prenatabs FA ] 1 tab PO DAILY 03/15/20 Please Follow Up With: Clemencia Deleon MD - [phone] When: Call to make an appointment with your doctor in 6 weeks. If you had elevated Blood pressure or 4th degree laceration you will need to be seen in 2 weeks. Primary Care Physician: Bernabe Taylor MD [Primary Care Provider] - Test Results: Test results from this visit will be discussed in further detail at your follow- up appointment, if applicable.
--- NOTE | 2020-03-17 07:48 | PCM.DCVAG ---
Discharge Diet: No Restrictions Discharge Activity: Return to Normal Activity, May not drive while taking narcotic pain medications., May Shower May resume sexual activity in: 4-6 weeks Call your doctor if your incision/area has: Continuous Slow Oozing, Sudden Increased Bleeding, Increased Pain/ Swelling, Increased Redness, Foul Smelling Discharge Additional Instructions: If you experience any of the following, contact your healthcare provider. Bleeding that soaks a pad every hour for 2 hours Fever 100.4 or higher Unrelieved incision or abdominal pain Swelling, redness, discharge or bleeding from your incision or episiotomy site Your incision begins to separate Problems urinating (including inability to urinate or burning while urinating). Visual changes Severe headache Flu-like symptoms Pain or redness in one of both of your breasts Pain, warmth, tenderness or swelling in your legs, especially the calf area Frequent nausea and vomiting Symptoms of depression or anxiety If you experience any of the following, call 911 or go to the nearest Emergency Room. Chest pain Problems breathing Seizure activity Partial or complete paralysis of a body part, slurred speech, weakness or drooping of the face, or a sudden inability to walk or hold your balance Allergies/Adverse Reactions: Allergies epinephrine Allergy (Mild, Verified 03/15/20 10:50) tachycardia, low bp fluoxetine [From Prozac] Allergy (Mild, Verified 03/15/20 10:50) tachycardia, low bp Medications to take at Discharge Vits [Prenatabs FA ] 1 tab PO DAILY 03/15/20 Please Follow Up With: Clemencia Deleon MD - [phone] When: Call to make an appointment with your doctor in 6 weeks. If you had elevated Blood pressure or 4th degree laceration you will need to be seen in 2 weeks. Primary Care Physician: Bernabe Taylor MD [Primary Care Provider] - Test Results: Test results from this visit will be discussed in further detail at your follow-up appointment, if applicable.
[2020-03-17 08:00] VITALS: BP 120/45; PULSE 87; RESP 15; TEMP 36.4; O2SAT 99
[2020-03-17] MEDS: Naproxen 250 MG Tablet 500 MG PO (08:02)
== END 2020-03-17 11:55 | disposition home or self-care (01) | DRG 806 ==
PROVIDERS: Admitting Provider Obstetrics & Gynecology; PCP Internal Medicine; Referring Provider Obstetrics & Gynecology; Visit Provider Obstetrics & Gynecology
DX: O76 Abnormality in fetal heart rate and rhythm complicating labor and delivery (principal); O41.03X0 Oligohydramnios, third trimester, not applicable or unspecified; Z37.0 Single live birth; O36.0130 Maternal care for anti-D [Rh] antibodies, third trimester, not applicable or unspecified; O70.1 Second degree perineal laceration during delivery; Z3A.40 40 weeks gestation of pregnancy; Z28.21 Immunization not carried out because of patient refusal; Z87.891 Personal history of nicotine dependence
CPT/HCPCS: 59050; 85025; 85461; 86850; 86900; 86901; 90384; 99218; J7120; A4216; G0378; J2790

== ENCOUNTER → 2020-10-17 | Outpatient (CLI) | payer BC, SELFPAY ==
[2020-10-17 15:06] VITALS: BMI 27.2
[2020-10-22 09:36] LABS: Chlamydia By Nucleic Acid AMP Negative (Negative)
[2020-10-22 10:17] LABS: Gonococcus By Nucleic Acid AMP Negative (Negative)
== END | disposition home or self-care (01) ==
LOC: LABSPEC 16:44
PROVIDERS: PCP Internal Medicine; Referring Provider Obstetrics & Gynecology; Visit Provider Obstetrics & Gynecology
DX: N89.8 Other specified noninflammatory disorders of vagina (principal); Z12.4 Encounter for screening for malignant neoplasm of cervix
CPT/HCPCS: 87070; 87205; 87491; 87591

== ENCOUNTER → 2021-05-05 16:46 | Outpatient (CLI) | payer BC, SELFPAY ==
[2021-05-05 14:18] VITALS: BMI 30.2
[2021-05-07 20:08] LABS: Chlamydia By Nucleic Acid AMP Negative (Negative)
[2021-05-07 22:18] LABS: Gonococcus By Nucleic Acid AMP Negative (Negative)
== END ==
PROVIDERS: PCP Internal Medicine; Referring Provider Obstetrics & Gynecology; Visit Provider Obstetrics & Gynecology
DX: Z11.3 Encounter for screening for infections with a predominantly sexual mode of transmission (principal)
CPT/HCPCS: 87491; 87591

== ENCOUNTER → 2021-05-09 13:11 | Outpatient (CLI) | payer BC, SELFPAY ==
[2021-05-05 14:18] VITALS: BMI 30.2
[2021-05-09 14:05] LABS: Thyroid Stim Hormone (TSH) 1.28 uIU/mL (0.358-3.74)
== END ==
PROVIDERS: PCP Internal Medicine; Referring Provider Obstetrics & Gynecology; Visit Provider Obstetrics & Gynecology
DX: N92.6 Irregular menstruation, unspecified (principal)
CPT/HCPCS: 36415; 84443

== ENCOUNTER → 2022-05-07 | Outpatient (CLI) | payer OTHER, SELFPAY ==
[2022-05-11 22:06] LABS: Chlamydia By Nucleic Acid AMP Negative (Negative)
[2022-05-11 23:15] LABS: Gonococcus By Nucleic Acid AMP Negative (Negative)
[2022-05-12 10:31] LABS: HPV Reflexed? NOT INDICATED
== END | disposition home or self-care (01) ==
LOC: LABSPEC 16:58
PROVIDERS: PCP Internal Medicine; Referring Provider Obstetrics & Gynecology; Visit Provider Obstetrics & Gynecology
DX: Z12.4 Encounter for screening for malignant neoplasm of cervix (principal); Z11.3 Encounter for screening for infections with a predominantly sexual mode of transmission
CPT/HCPCS: 87491; 87591; 88175; G0145

== ENCOUNTER → 2022-06-18 | Outpatient (CLI) | payer OTHER, SELFPAY ==
[2022-06-22 16:52] LABS: Treponema palladium Ab (FTA) Non Reactive (Non Reactive)
== END | disposition home or self-care (01) ==
LOC: PAVLAB 09:22
PROVIDERS: PCP Internal Medicine; Referring Provider Obstetrics & Gynecology; Visit Provider Obstetrics & Gynecology
DX: Z11.3 Encounter for screening for infections with a predominantly sexual mode of transmission (principal)
CPT/HCPCS: 36415; 86780

== ENCOUNTER → 2022-10-12 | Outpatient (CLI) | payer OTHER, SELFPAY ==
[2022-10-12 15:31] LABS: Syphilis Antibodies Non-reactive
[2022-10-14 22:06] LABS: Chlamydia By Nucleic Acid AMP Negative (Negative)
[2022-10-14 22:51] LABS: Gonococcus By Nucleic Acid AMP Negative (Negative)
== END | disposition home or self-care (01) ==
PROVIDERS: PCP Internal Medicine; Referring Provider Nurse Practitioner Women's Health; Visit Provider Nurse Practitioner Women's Health
DX: Z11.3 Encounter for screening for infections with a predominantly sexual mode of transmission (principal)
CPT/HCPCS: 36415; 86780; 87491; 87591

== ENCOUNTER → 2023-08-16 | Outpatient (CLI) | payer OTHER, SELFPAY ==
--- NOTE | 2023-08-16 14:25 | BI_ITS ---
MAMMOGRAPHY - BILATERAL DIAGNOSTIC REASON FOR EXAM: Female, 33 years old. Bilateral breast lumps with tenderness with menstrual cycle. PERTINENT HISTORY: Non-contributory. TECHNIQUE: Digital bilateral breast bailey (3D mammographic acquisition) in the CC and MLO projections. 2-D mediolateral oblique (MLO) and craniocaudad (CC) views of both breasts were obtained. CAD: Full Field Digital Mammography with Computer Added Detection was performed. COMPARISON: None. Baseline examination. FINDINGS: Breast Composition: The breasts are heterogeneously dense, which may obscure small masses. There are no dominant masses or suspicious calcifications. No other significant abnormalities are identified. BI/DIAG MAMM W/CAD, BILAT IMPRESSION: Negative diagnostic mammogram. With the patient''s history of tenderness along the lateral aspect of the breasts, targeted ultrasound correlation is recommended. ASSESSMENT CATEGORY: BIRADS Category 0: Incomplete. Need additional imaging evaluation. A letter regarding these results will be sent to the patient by the facility within 30 days. Approximately 10% of breast cancers are not detected by mammography. A normal mammogram should not delay biopsy of a clinically suspicious abnormality. Electronically Signed: eVrn Freire MD at 15:04 EDT ,
--- NOTE | 2023-08-16 14:25 | US_ITS ---
STUDY: ULTRASOUND BREAST - LEFT REASON FOR EXAM: Female, 33 years old. Palpable lump left breast. TECHNIQUE: Axial and longitudinal images of the LEFT breast were performed with a high resolution ultrasound transducer. # OF IMAGES: 109 COMPARISON: Comparison is made with prior mammogram done earlier in the day. FINDINGS: LEFT Breast: The lateral half of the left breast was examined with ultrasound. The palpable lump corresponds to a 1.7 cm x 0.7 cm x 0.6 cm well-defined benign appearing lymph node. IMPRESSION: The palpable lump corresponds to a 1.7 cm x 0.7 cm x 0.6 cm well-defined benign-appearing lymph node. ASSESSMENT CATEGORY: BIRADS Category 2: Benign. A letter regarding these results will be sent to the patient by the facility within 30 days. Electronically Signed: Vern Freire MD at 8:48 EDT , STUDY: ULTRASOUND BREAST - RIGHT REASON FOR EXAM: Female, 33 years old. Palpable lump in the right breast. TECHNIQUE: Axial and longitudinal images of the RIGHT breast were performed with a high resolution ultrasound transducer. # OF IMAGES: 109 COMPARISON: Comparison is made with prior mammogram done earlier in day. FINDINGS: RIGHT Breast: The lateral half of the right breast was examined with ultrasound. 2 small benign-appearing lymph nodes are seen at the 11:00 position of the breast at 10 cm from the nipple. The larger lymph node measures 1 cm x 0.9 cm x 0.4 cm. US/Breast Limited Unilateral IMPRESSION: 2 small benign appearing lymph nodes are seen in the region of the palpable abnormality. ASSESSMENT CATEGORY: BIRADS Category 2: Benign. A letter regarding these results will be sent to the patient by the facility within 30 days. Electronically Signed: Vern Freire MD at 8:49 EDT ,
== END | disposition home or self-care (01) ==
LOC: OPBI 14:23
PROVIDERS: Referring Provider Obstetrics & Gynecology; Visit Provider Obstetrics & Gynecology
DX: N64.4 Mastodynia (principal); N63.10 Unspecified lump in the right breast, unspecified quadrant
CPT/HCPCS: 76642; 77062; 77066; G0279

== ENCOUNTER → 2024-05-25 | Outpatient (CLI) | payer OTHER, SELFPAY ==
[2024-05-29 05:06] LABS: Chlamydia By Nucleic Acid AMP Negative (Negative); Gonococcus By Nucleic Acid AMP Negative (Negative)
[2024-05-31 14:13] LABS: HPV APTIMA, High Risk Negative (Negative)
== END | disposition home or self-care (01) ==
PROVIDERS: Visit Provider Obstetrics & Gynecology
DX: Z12.4 Encounter for screening for malignant neoplasm of cervix (principal)
CPT/HCPCS: 87491; 87591; 87624; 88175; G0145

== ENCOUNTER → 2024-06-06 | Outpatient (CLI) | payer OTHER, SELFPAY ==
--- NOTE | 2024-06-06 16:19 | US_ITS ---
INDICATION: pelvic pain EXAMINATION: Ultrasound US Pelvis Non OB Complete With Transvaginal Imaging TECHNIQUE: Transabdominal and transvaginal pelvic ultrasound was performed. Grayscale, spectral waveform, and color flow Doppler evaluation of the adnexa. COMPARISON: September 18, 2019 FINDINGS: UTERUS: The uterus measures 7.9 x 5.8 x 6.4 cm. There is no uterine mass. The endometrial stripe measures 10.8 mm in AP diameter which is within normal limits. RIGHT OVARY: 3.1 x 1.7 x 2.0 cm. Non-enlarged, normal echogenicity. There is normal arterial inflow and venous outflow present in the right ovary. LEFT OVARY: 3.4 x 1.9 x 2.2 cm. Non-enlarged, normal echogenicity. There is normal arterial inflow and venous outflow present in the left ovary. FREE FLUID: None. There are prominent vessels within the adnexa. The urinary bladder is within normal limits. US/Pelvic w/ Transvaginal IMPRESSION: Prominent vessels within the adnexa, may reflect pelvic congestion syndrome. Electronically Signed: Henna Larose MD at 8:31 EDT ,
== END | disposition home or self-care (01) ==
LOC: US 16:19
PROVIDERS: PCP Family Medicine; Referring Provider Obstetrics & Gynecology; Visit Provider Obstetrics & Gynecology
DX: R10.2 Pelvic and perineal pain (principal)
CPT/HCPCS: 76830; 76856

== ENCOUNTER → 2025-10-25 | Outpatient (CLI) | payer OTHER, SELFPAY ==
--- NOTE | 2025-10-25 07:50 | US_ITS ---
PROCEDURE: TRANSVAGINAL NON- 10/25/2025 REASON FOR EXAM: ENDOMETRIOMAS BILATERAL TECHNIQUE: Procedure Code: USTVAG Modality: US Procedure: TRANSVAGINAL NON- COMPARISON: 06 June 2024. FINDINGS: Uterus: The uterus measures 8.7 x 5.5 x 4.3 cm. Homogenous appearance without evidence of discrete cyst, echogenic calculi, or mass. The endometrial stripe measures 6 mm. Multiple simple nabothian cysts visualized in the cervix. Right ovary: The right ovary is normal in size measuring 3.6 x 2.4 x 2.1 cm. Multiple follicles visualized of 10 per scan field. Exophytic simple cyst measuring 2.1 x 1.1 x 0.8 cm. O-RADS 2. Blood flow to the adnexa is normal with arterial and venous waveforms documented. Left ovary: The left ovary is normal in size measuring 3.5 x 2.2 x 2 cm. Multiple follicles visualized of 10 per scan field. Blood flow to the adnexa is normal with arterial and venous waveforms documented. BLADDER: The bladder was not fully distended. The ureteral jets were notseen. Prevoid bladder volume is 21 ml. No ascites. US/Transvaginal Non- IMPRESSION: 1. No evidence of acute ovarian torsion 2. 2.1 cm right ovarian exophytic cyst. O-RADS 2. No follow up needed. 3. Multiple bilateral ovarian follicles of 10 per scan field which can be seen with polycystic ovary syndrome in the appropriate clinical context. Reading Location: [id number]
== END | disposition home or self-care (01) ==
LOC: OPUS 07:48
PROVIDERS: PCP Family Medicine; Referring Provider Obstetrics & Gynecology; Visit Provider Obstetrics & Gynecology
DX: N80.123 Deep endometriosis of bilateral ovaries (principal)
CPT/HCPCS: 76856; 76830